=== PATIENT | female | born 1970 | race Caucasian/White ===

== ENCOUNTER 2023-12-07 01:26 | Inpatient (IN) | payer BC ==
[2023-12-07] VITALS (10 sets, daily range): BP systolic 103–111; BP diastolic 51–58; PULSE 70–102; RESP 14–93; TEMP 97.5–98.1; O2SAT 92–100
[~2023-12-07] VITALS: Ht 162.6 cm; Wt 61.0 kg
[~2023-12-07 01:26] MED LIST: AUG875T PO; FLUT1INH6 IN
[2023-12-07 02:03] LABS: Basophils # (auto) 0.1 10 ^3/uL (0-0.2); Basophils % (auto) 0.8 % (0.0-2.0); Eosinophils # (auto) 0.9 10 ^3/uL (0-0.8); Eosinophils % (auto) 9.1 % (0.0-7.0); Hematocrit 41.1 % (36.0-46.0); Hemoglobin 13.5 g/dL (12.2-16.2); Lymphocytes # (auto) 2.3 10 ^3/uL (0.4-5.4); Lymphocytes % (auto) 23.7 % (10.0-50.0); Mean Corpuscular Hemoglobin 28.5 pg (28.0-32.0); Mean Corpuscular Hgb Conc. 32.8 g/dL (32.0-36.0); Monocytes # (auto) 0.6 10 ^3/uL (0-1.3); Monocytes % (auto) 6.7 % (0.0-12.0); Neutrophils # (auto) 5.7 10 ^3/uL (1.6-8.6); Neutrophils % (auto) 59.7 % (37.0-80.0); Nucleated Red Blood Cells % 0.1 %; Red Blood Cells 4.73 10^6/uL (4.0-5.20); Red Cell Distribution Width 14.2 % (11.8-14.3); White Blood Cell 9.6 10^3/uL (4.4-10.8)
[2023-12-07 02:23] LABS: Alanine Aminotransferase 25 U/L (7-40); Albumin 4.4 g/dL (3.2-4.8); Alkaline Phosphatase 115 U/L (46-116); Anion Gap 3 (5-15); Aspartate Aminotransferase 35 U/L (13-40); BUN/Creatinine Ratio 9.8 (10.0-20.0); Bilirubin, Total 0.4 mg/dL (0.2-1.0); Blood Urea Nitrogen 9 mg/dL (9-23); Carbon Dioxide 30 mmol/L (20-30); Chloride 106 mmol/L (98-107); Glucose 100 mg/dL (74-106); Potassium 3.9 mmol/L (3.5-5.1); Sodium 139 mmol/L (136-145)
[2023-12-07 02:24] LABS: Total Protein 7.6 g/dL (5.7-8.2)
[2023-12-07 02:30] LABS: Lipase 1102 U/L (12-53)
[2023-12-07] MEDS: SODIUM CHLORIDE 0.9% 1,000 ML IV ONE ×2 (06:10→09:09)
[2023-12-07] MEDS: HYDROmorphone HCL 2 MG/ML VL/or syr ONE (06:15)
[2023-12-07] MEDS: ONDANSETRON HCL 4 MG/2 ML VIAL ONE (06:16)
[2023-12-07] MEDS: HYDROmorphone HCL 2 MG/ML VL/or syr IV ONE (06:18)
[2023-12-07] MEDS: ONDANSETRON HCL 4 MG/2 ML VIAL IV ONE (06:19)
[2023-12-07] MEDS ORDERED: ACETAMINOPHEN 325 MG TAB PO PRN (08:45)
[2023-12-07] MEDS: KETOROLAC TROMETH 30 MG/ML 1ML VIAL IV ONE (09:06)
[2023-12-07] MEDS: ONDANSETRON HCL 4 MG/2 ML VIAL IV PRN (09:22)
[2023-12-07] MEDS: PANTOPRAZOLE 40 MG/10 ML VIAL INJ IV SCH (10:00)
[2023-12-07] MEDS ORDERED: ALBUTEROL SULF 2.5 MG/0.5ML(0.5%) NEB SOLN NEB PRN (10:15)
[2023-12-07] MEDS: SODIUM CHLORIDE 0.9% 1,000 ML IV SCH (10:41)
[2023-12-07] MEDS: ENOXAPARIN SOD 40 MG/0.4 ML SYRINGE SC SCH (10:42)
[2023-12-07 11:07] LABS: Urine Bacteria None Seen /hpf (None Seen)
[2023-12-07] MEDS: PANTOPRAZOLE 40 MG/10 ML VIAL INJ IV ONE (11:10)
[2023-12-07 11:23] LABS: Urine Blood Negative /uL (Negative); Urine Clarity Clear (Clear); Urine Color Light-Yellow (Yellow); Urine Mucus FEW (None Seen); Urine Protein, UAD Negative (Negative); Urine Urobilinogen Normal (Negative); Urine WBC 3 /hpf (0 - 5); Urine pH 6.5 (5.0-9.0)
[2023-12-07] MEDS: HYDROcodone-ACET 5/325MG TAB ONE (11:45)
[2023-12-07] MEDS: HYDROcodone-ACET 5/325MG TAB PO PRN (11:51)
[2023-12-07] MEDS ORDERED: KETOROLAC TROMETH 30 MG/ML 1ML VIAL IV PRN (13:15)
[2023-12-07] MEDS: ALBUTEROL SULF 2.5 MG/0.5ML(0.5%) NEB SOLN NEB PRN (22:15)
[2023-12-08] VITALS (10 sets, daily range): BP systolic 95–127; BP diastolic 42–69; PULSE 73–91; RESP 16–22; TEMP 97.7–98; O2SAT 94–99
[2023-12-08 06:19] LABS: Basophils # (auto) 0 10 ^3/uL (0-0.2); Basophils % (auto) 1.2 % (0.0-2.0); Eosinophils # (auto) 0.5 10 ^3/uL (0-0.8); Eosinophils % (auto) 13.4 % (0.0-7.0); Hemoglobin 10.8 g/dL (12.2-16.2); Lymphocytes # (auto) 1.5 10 ^3/uL (0.4-5.4); Lymphocytes % (auto) 36.1 % (10.0-50.0); Mean Corpuscular Hemoglobin 28.7 pg (28.0-32.0); Mean Corpuscular Hgb Conc. 32.8 g/dL (32.0-36.0); Mean Corpuscular Volume 87.7 fL (80.0-100.0); Monocytes # (auto) 0.2 10 ^3/uL (0-1.3); Monocytes % (auto) 5.3 % (0.0-12.0); Neutrophils # (auto) 1.8 10 ^3/uL (1.6-8.6); Nucleated Red Blood Cells % 0.1 %; Red Blood Cells 3.76 10^6/uL (4.0-5.20); Red Cell Distribution Width 14.7 % (11.8-14.3); White Blood Cell 4.1 10^3/uL (4.4-10.8)
[2023-12-08 06:36] LABS: Alanine Aminotransferase 19 U/L (7-40); Albumin 3.4 g/dL (3.2-4.8); Alkaline Phosphatase 86 U/L (46-116); Anion Gap 5 (5-15); Aspartate Aminotransferase 21 U/L (13-40); BUN/Creatinine Ratio 9.9 (10.0-20.0); Blood Urea Nitrogen 7 mg/dL (9-23); Calcium 8.5 mg/dL (8.7-10.4); Carbon Dioxide 26 mmol/L (20-30); Chloride 111 mmol/L (98-107); Glucose 84 mg/dL (74-106); Potassium 3.8 mmol/L (3.5-5.1); Sodium 142 mmol/L (136-145)
[2023-12-08 06:37] LABS: Bilirubin, Total 0.5 mg/dL (0.2-1.0); Total Protein 5.8 g/dL (5.7-8.2)
[2023-12-08] MEDS: ENOXAPARIN SOD 40 MG/0.4 ML SYRINGE SC ONE (08:52)
[2023-12-08] MEDS: PANTOPRAZOLE 40 MG/10 ML VIAL INJ IV ONE (08:52)
[2023-12-08] MEDS: SODIUM CHLORIDE 0.9% 1,000 ML IV SCH (10:45)
[2023-12-08] MEDS: cefTRIAXone 1GM/50ML D5W 50 ML IV ONE (11:13)
[2023-12-09 01:00] VITALS: BP 106/43; PULSE 70; RESP 18; TEMP 97.7; O2SAT 95
[2023-12-09 05:00] VITALS: BP 118/60; PULSE 84; RESP 18; TEMP 98.1; O2SAT 94
[2023-12-09 06:48] LABS: Alanine Aminotransferase 18 U/L (7-40); Albumin 3.8 g/dL (3.2-4.8); Alkaline Phosphatase 87 U/L (46-116); Anion Gap 3 (5-15); BUN/Creatinine Ratio 7.8 (10.0-20.0); Blood Urea Nitrogen 6 mg/dL (9-23); Calcium 8.9 mg/dL (8.5-10.1); Carbon Dioxide 29 mmol/L (20-30); Chloride 109 mmol/L (98-107); Glucose 88 mg/dL (74-106); Potassium 4.1 mmol/L (3.5-5.1); Sodium 141 mmol/L (136-145)
[2023-12-09 06:49] LABS: Aspartate Aminotransferase 23 U/L (13-40); Bilirubin, Total 0.3 mg/dL (0.2-1.0)
[2023-12-09 07:10] LABS: Lipase 47 U/L (12-53)
[2023-12-09 07:58] VITALS: O2SAT 94
[2023-12-09 07:59] VITALS: O2SAT 94
[2023-12-09 08:40] VITALS: BP 125/72; PULSE 78; RESP 16; TEMP 97.4; O2SAT 95
[2023-12-09 10:00] VITALS: O2SAT 95
== END 2023-12-09 13:37 | disposition home or self-care (01) | DRG 440 ==
LOC: ER 01:26 → OVERFLOW 08:34 → EAST 11:23
PROVIDERS: ADMIT Nurse Practitioner Family; ATTEND Internal Medicine
DX: K85.90 Acute pancreatitis without necrosis or infection, unspecified (principal); J45.909 Unspecified asthma, uncomplicated; Z88.6 Allergy status to analgesic agent; Z88.2 Allergy status to sulfonamides; Z88.8 Allergy status to other drugs, medicaments and biological substances; Z90.49 Acquired absence of other specified parts of digestive tract
CPT/HCPCS: 36415; 74176; 76705; 80053; 81001; 83605; 83690; 84484; 85025; 87040; 87081; 94640; 96374; 96375; C9113; G0378; J2405